=== PATIENT | female | born 1945 | race Caucasian/White ===

== ENCOUNTER 2021-01-18 12:49 | Outpatient (CLI) | payer MEDICARE | END 2021-01-18 12:50 | disposition home or self-care (01) | LOC: BICMAMMO 12:49 | PROVIDERS: ATTEND Family Medicine | DX: Z12.31 Encounter for screening mammogram for malignant neoplasm of breast (principal); Z80.3 Family history of malignant neoplasm of breast | CPT/HCPCS: 77063; 77067 ==

== ENCOUNTER 2022-09-12 09:33 | Outpatient (CLI) | payer MEDICARE | END 2022-09-12 09:34 | disposition home or self-care (01) | LOC: BICMAMMO 09:33 | PROVIDERS: ATTEND Family Medicine | DX: Z12.31 Encounter for screening mammogram for malignant neoplasm of breast (principal); R92.1 Mammographic calcification found on diagnostic imaging of breast; Z80.3 Family history of malignant neoplasm of breast | CPT/HCPCS: 77063; 77067 ==

== ENCOUNTER 2022-09-17 09:37 | Outpatient (CLI) | payer MEDICARE | END 2022-09-17 09:38 | disposition home or self-care (01) | LOC: BICMAMMO 09:37 | PROVIDERS: ATTEND Family Medicine | DX: R92.1 Mammographic calcification found on diagnostic imaging of breast (principal) | CPT/HCPCS: 77065; G0279 ==